=== PATIENT | female | born 1985 | race African-American/Black ===

== ENCOUNTER 2017-02-16 15:04 | Emergency (ER) | payer MEDICAID ==
[~2017-02-16] VITALS: Ht 147.3 cm; Wt 59.0 kg
[2017-02-16 15:18] VITALS: BP 117/74
== END 2017-02-16 18:40 | disposition left against medical advice (07) ==
LOC: ER 15:04
DX: R20.2 Paresthesia of skin (principal); Z53.21 Procedure and treatment not carried out due to patient leaving prior to being seen by health care provider

== ENCOUNTER 2017-06-19 20:32 | Emergency (ER) | payer MEDICAID ==
[~2017-06-19] VITALS: Ht 147.3 cm; Wt 59.0 kg
[2017-06-19] MEDS ORDERED: SODIUM CHLORIDE 0.9% 1,000 ML IV ONE (23:31)
[2017-06-19] MEDS ORDERED: KETOROLAC 30MG/ML VIAL IV STA (23:31)
[2017-06-20 00:06] LABS: BASOPHILS % 0.5 % (0.0-2.0); EOSINOPHILS % 6.8 % (0.0-5.0); HEMATOCRIT. 33.3 % (36.0-48.0); HEMOGLOBIN. 10.7 g/dL (12.0-16.0); LYMPHOCYTES % 33.3 % (20.0-50.0); MEAN CORPUSCULAR HEMOGLOBIN 29.1 pg (28.0-32.0); MEAN CORPUSCULAR VOLUME 90.8 fL (81.0-99.0); MEAN PLATELET VOLUME 8.2 fl (7.4-10.4); MONOCYTES % 10.5 % (2.0-8.0); NEUTROPHILS % 48.9 % (40.0-76.0); PLATELET 274 x1000/uL (130-400); RED BLOOD CELL COUNT 3.67 mill/uL (4.2-5.4); RED CELL DISTRIBUTION WIDTH 13.7 % (11.6-14.6)
[2017-06-20 00:15] LABS: CHLORIDE 106 mEq/L (98-107); TROPONIN I < 0.02 ng/mL (0.00-0.04)
[2017-06-20 03:19] VITALS: BP 109/56
== END 2017-06-20 03:19 | disposition home or self-care (01) ==
LOC: ER 20:32
DX: R09.1 Pleurisy (principal); R22.2 Localized swelling, mass and lump, trunk
CPT/HCPCS: 36415; 70450; 71045; 80053; 81025; 84484; 85025; 85379; 93005; 96361; 96374; 99285; J1885; J7030; J7040; Z7610

== ENCOUNTER 2017-12-01 21:40 | Emergency (ER) | payer MEDICAID ==
[~2017-12-01] VITALS: Ht 147.3 cm; Wt 59.0 kg
[2017-12-01] MEDS ORDERED: LIDOCAINE HCL/EPINEPHRINE 1%-EPI 1:100,000 30 ML VIAL INFIL ONE (23:00)
[2017-12-01] MEDS ORDERED: KETOROLAC 30MG/ML VIAL IV ONE (23:00)
[2017-12-01] MEDS ORDERED: LIDOCAINE HCL/PF 1% 10 MG/ML 5ML VIAL IJ NR (23:15)
[2017-12-02 00:12] LABS: BASOPHILS % 0.9 % (0.0-2.0); EOSINOPHILS % 4.1 % (0.0-5.0); HEMATOCRIT. 34.2 % (36.0-48.0); HEMOGLOBIN. 11.1 g/dL (12.0-16.0); LYMPHOCYTES % 29.8 % (20.0-50.0); MEAN CORPUSCULAR VOLUME 89.3 fL (81.0-99.0); MEAN PLATELET VOLUME 8.3 fl (7.4-10.4); MONOCYTES % 5.3 % (2.0-8.0); NEUTROPHILS % 59.9 % (40.0-76.0); PLATELET 277 x1000/uL (130-400); RED BLOOD CELL COUNT 3.83 mill/uL (4.2-5.4); RED CELL DISTRIBUTION WIDTH 13.7 % (11.6-14.6)
[2017-12-02 00:18] LABS: CHLORIDE 107 mEq/L (98-107)
[2017-12-02 00:19] LABS: INR 1.1
[2017-12-02] MEDS ORDERED: NAPROXEN 500MG TABLET PO STA (01:07)
[2017-12-02 02:33] VITALS: BP 123/76
== END 2017-12-02 02:33 | disposition home or self-care (01) ==
LOC: ER 21:40 → CANBEDREQ 12-02 04:19
DX: K04.7 Periapical abscess without sinus (principal)
CPT/HCPCS: 36415; 71045; 80053; 83605; 85025; 85610; 87040; 93005; 96374; 99285; J1885; J3490; Z7610

== ENCOUNTER 2020-08-20 09:50 | Emergency (ER) | payer MEDICAID ==
[~2020-08-20] VITALS: Ht 147.3 cm; Wt 59.0 kg
[2020-08-20] MEDS ORDERED: LIDOCAINE HCL/EPINEPHRINE 1%-EPI 1:100,000 10 ML VIAL IJ ONE (10:15)
[2020-08-20] MEDS ORDERED: TETANUS, DIPHTHERIA, PERTUSSIS VAC/PF 0.5ML (>7YR OLD) IM ONE (10:15)
[2020-08-20] MEDS ORDERED: ACETAMINOPHEN 325MG TABLET PO ONE (10:30)
[2020-08-20] MEDS ORDERED: LIDOCAINE HCL/EPINEPHRINE 1%-EPI 1:100,000 20 ML VIAL INFIL ONE (10:30)
[2020-08-20] MEDS ORDERED: ACET650T37 MT (11:05)
[2020-08-20 11:33] VITALS: BP 120/75
== END 2020-08-20 11:33 | disposition home or self-care (01) ==
LOC: ER 09:55
DX: S09.8XXA Other specified injuries of head, initial encounter (principal); Y08.89XA Assault by other specified means, initial encounter; Y93.89 Activity, other specified; Y92.9 Unspecified place or not applicable; Z94.5 Skin transplant status
CPT/HCPCS: 12001; 90471; 90715; 99283; J3490; Z7610

== ENCOUNTER 2020-08-24 11:34 | Emergency (ER) | payer MEDICAID ==
[~2020-08-24] VITALS: Ht 147.3 cm; Wt 59.0 kg
[~2020-08-24 11:34] MED LIST: ACET650T37 MT
[2020-08-24] MEDS ORDERED: ONDANSETRON 4MG ODT PO ONE (12:15)
[2020-08-24] MEDS ORDERED: ACETAMINOPHEN 325MG TABLET PO ONE (12:45)
[2020-08-24] MEDS ORDERED: ONDA4TAB5 MT (14:42)
[2020-08-24 15:00] VITALS: BP 107/58
== END 2020-08-24 15:33 | disposition home or self-care (01) ==
LOC: ER 11:34
DX: R11.0 Nausea (principal); R42 Dizziness and giddiness; S06.0X9A Concussion with loss of consciousness of unspecified duration, initial encounter; X58.XXXA Exposure to other specified factors, initial encounter; Y93.9 Activity, unspecified; Y92.9 Unspecified place or not applicable; Z48.00 Encounter for change or removal of nonsurgical wound dressing
CPT/HCPCS: 70450; 81025; 93005; 99284; Q0162; Z7610

== ENCOUNTER 2021-01-29 23:14 | Emergency (ER) | payer MEDICAID ==
[~2021-01-29] VITALS: Ht 170.2 cm; Wt 75.0 kg
[~2021-01-29 23:14] MED LIST changes: +ONDA4TAB5 MT
[2021-01-29] MEDS ORDERED: KETOROLAC 30MG/ML VIAL IV STA (23:44)
[2021-01-29] MEDS ORDERED: SODIUM CHLORIDE 0.9% 1,000 ML IV ONE (23:45)
[2021-01-29] MEDS ORDERED: DIAZEPAM 2 MG TABLET PO ONE (23:45)
[2021-01-30 00:04] LABS: BASOPHILS % 0.4 % (0.0-2.0); CHLORIDE 109 mEq/L (98-107); EOSINOPHILS % 3.5 % (0.0-5.0); HEMATOCRIT. 32.8 % (36.0-48.0); HEMOGLOBIN. 10.8 g/dL (12.0-16.0); LYMPHOCYTES % 31.2 % (20.0-50.0); MEAN CORPUSCULAR HEMOGLOBIN 29.7 pg (28.0-32.0); MEAN CORPUSCULAR VOLUME 90.5 fL (81.0-99.0); MEAN PLATELET VOLUME 8.7 fl (7.4-10.4); MONOCYTES % 8.4 % (2.0-8.0); NEUTROPHILS % 56.5 % (40.0-76.0); PLATELET 245 x1000/uL (130-400); RED BLOOD CELL COUNT 3.62 mill/uL (4.2-5.4); RED CELL DISTRIBUTION WIDTH 13.2 % (11.6-14.6)
[2021-01-30 00:26] LABS: CLARITY URINE CLOUDY (CLEAR); COLOR URINE YELLOW (YELLOW); KETONES URINE TRACE (NEGATIVE); LEUKOCYTE ESTERASE URINE NEGATIVE (NEGATIVE); NITRITE URINE NEGATIVE (NEGATIVE); OCCULT BLOOD URINE NEGATIVE (NEGATIVE); PROTEIN URINE TRACE (NEGATIVE)
[2021-01-30] MEDS ORDERED: NAPR-681 MT (02:06)
[2021-01-30] MEDS ORDERED: DIAZ2TAB MT (02:06)
[2021-01-30] MEDS ORDERED: ONDANSETRON HCL 4MG/2ML INJ IV ONE (02:45)
[2021-01-30] MEDS ORDERED: MORPHINE SULFATE 2 MG/ML CPJ (NOT FOR IM USE) IV ONE (02:45)
[2021-01-30 03:03] VITALS: BP 101/66
[2021-01-30] MEDS ORDERED: IBUP-2437 MT (21:06)
== END 2021-01-30 04:55 | disposition home or self-care (01) ==
LOC: ER 23:14
DX: R51.9 Headache, unspecified (principal)
CPT/HCPCS: 36415; 70450; 80048; 81003; 85025; 87070; 87430; 87804; 96361; 96374; 96375; 99284; J1885; J2270; J2405; J7030; Z7610

== ENCOUNTER 2021-01-30 20:58 | Emergency (ER) | payer MEDICAID ==
[~2021-01-30] VITALS: Ht 147.3 cm; Wt 57.0 kg
[~2021-01-30 20:58] MED LIST changes: +DIAZ2TAB MT; +NAPR-681 MT
[2021-01-30 21:05] VITALS: BP 126/72
[2021-01-30] MEDS ORDERED: IBUP-2437 MT (21:06)
[2021-01-30] MEDS ORDERED: IBUPROFEN 600MG TABLET PO ONE (21:15)
== END 2021-01-30 21:22 | disposition home or self-care (01) ==
LOC: ER 20:58
DX: R51.9 Headache, unspecified (principal)
CPT/HCPCS: 99282

== ENCOUNTER 2021-12-17 19:03 | Emergency (ER) | payer MEDICAID ==
[~2021-12-17] VITALS: Ht 147.3 cm; Wt 59.0 kg
[~2021-12-17 19:03] MED LIST changes: +ACET-3163 MT; -ACET650T37 MT; +IBUP-2437 MT
[2021-12-17] MEDS ORDERED: ACETAMINOPHEN 325MG TABLET PO STA (22:56)
[2021-12-17 23:59] LABS: CLARITY URINE CLEAR (CLEAR); COLOR URINE YELLOW (YELLOW); KETONES URINE TRACE (NEGATIVE); LEUKOCYTE ESTERASE URINE 1+ (NEGATIVE); NITRITE URINE NEGATIVE (NEGATIVE); OCCULT BLOOD URINE NEGATIVE (NEGATIVE); PROTEIN URINE TRACE (NEGATIVE); SPECIFIC GRAVITY URINE 1.033 (1.005-1.030)
[2021-12-18] MEDS ORDERED: KETOROLAC 30MG/ML VIAL IV STA (01:43)
[2021-12-18] MEDS ORDERED: SODIUM CHLORIDE 0.9% 1,000 ML IV ONE (01:45)
[2021-12-18] MEDS ORDERED: MORPHINE SULFATE 4 MG/ML CPJ (NOT FOR IM USE) IV STA (02:39)
[2021-12-18] MEDS ORDERED: ONDANSETRON HCL 4MG/2ML INJ IV STA (02:39)
[2021-12-18] MEDS ORDERED: IBUP-2029 MT (04:55)
[2021-12-18] MEDS ORDERED: HYDROCODONE/ACETAMINOPHEN 5/325MG TABLET PO ONE (05:15)
[2021-12-18 05:25] VITALS: BP 114/65
== END 2021-12-18 05:36 | disposition home or self-care (01) ==
LOC: ER 19:03
DX: R10.31 Right lower quadrant pain (principal); N83.201 Unspecified ovarian cyst, right side
CPT/HCPCS: 36415; 74176; 76830; 76856; 80053; 81003; 81025; 83690; 84702; 84703; 85025; 86850; 86900; 86901; 96361; 96374; 96375; 99285; J1885; J2270; J2405; J7030

== ENCOUNTER 2023-05-16 19:38 | Emergency (ER) | payer MEDICAID ==
[~2023-05-16] VITALS: Ht 147.3 cm; Wt 59.0 kg
[~2023-05-16 19:38] MED LIST changes: +IBUP-2029 MT
[2023-05-16 19:46] VITALS: TEMP 98.6; O2SAT 100
[2023-05-16] MEDS ORDERED: DEXT15DR5 EACHEYE (22:08)
[2023-05-16] MEDS ORDERED: AZIT2.5D5 RIGHTEYE (22:08)
[2023-05-16 22:48] VITALS: BP 112/65; PULSE 93; RESP 18
== END 2023-05-16 22:49 | disposition home or self-care (01) ==
LOC: ER 19:38
DX: H00.011 Hordeolum externum right upper eyelid (principal)
CPT/HCPCS: 99283

== ENCOUNTER 2024-03-06 22:03 | Emergency (ER) | payer MEDICAID ==
[~2024-03-06] VITALS: Ht 147.3 cm; Wt 59.0 kg
[2024-03-06] MEDS: ACETAMINOPHEN 325MG TABLET PO ONE (01:00)
[~2024-03-06 22:03] MED LIST changes: +AZIT2.5D5 RIGHTEYE; +DEXT15DR5 EACHEYE
[2024-03-06 22:07] VITALS: O2SAT 100
[2024-03-06 22:19] VITALS: BP 90/60; PULSE 97; RESP 16; TEMP 98; O2SAT 100
[2024-03-07 00:04] LABS: BASOPHILS % 0.8 % (0.0-2.0); EOSINOPHILS % 4.9 % (0.0-5.0); HEMATOCRIT. 32.5 % (36.0-48.0); HEMOGLOBIN. 10.6 g/dL (12.0-16.0); LYMPHOCYTES % 23.3 % (20.0-50.0); MEAN CORPUSCULAR HEMOGLOBIN 30.3 pg (28.0-32.0); MEAN CORPUSCULAR HGB CONC 32.8 g/dL (31.0-37.0); MEAN CORPUSCULAR VOLUME 92.3 fL (81.0-99.0); MEAN PLATELET VOLUME 7.9 fl (7.4-10.4); PLATELET 267 x1000/uL (130-400); RED BLOOD CELL COUNT 3.52 mill/uL (4.2-5.4); RED CELL DISTRIBUTION WIDTH 13.9 % (11.6-14.6); WHITE BLOOD COUNT 7.7 x1000/uL (4.5-11.0)
[2024-03-07 00:10] LABS: CHLORIDE 108 mEq/L (98-107); POTASSIUM 3.6 mEq/L (3.5-5.1); SODIUM 142 mEq/L (136-145)
[2024-03-07 00:11] LABS: CALCIUM 9.1 mg/dL (8.7-10.4); CARBON DIOXIDE 30 mEq/L (21-32)
[2024-03-07 00:16] LABS: CREATININE 0.8 mg/dL (0.6-1.0); GLUCOSE 81 mg/dL (70-105); UREA NITROGEN BLOOD 12 mg/dL (9-23)
[2024-03-07 00:17] LABS: HCG SCREEN NEGATIVE
[2024-03-07 01:45] LABS: TROPONIN I HIGH SENSITIVITY < 4 ng/L (3.0-34)
== END 2024-03-07 07:06 | disposition home or self-care (01) ==
LOC: ER 22:03
DX: R51.9 Headache, unspecified (principal); R06.02 Shortness of breath; Z79.899 Other long term (current) drug therapy
CPT/HCPCS: 36415; 80048; 84484; 84703; 85025; 93005; 99284